=== PATIENT | female | born 1995 | race Two or more races ===

== ENCOUNTER 2023-06-18 18:41 | Inpatient (IN) ==
[2023-06-18] MEDS ORDERED: Lidocaine 1% VIAL 10 MG/ML 30 ML VIAL INJ PRN (20:22)
[2023-06-18] MEDS ORDERED: Promethazine INJ(RESTRICTED) 25 MG/ML 1 ml VIAL IV PRN (20:22)
[2023-06-18] MEDS ORDERED: Lactated Ringers 1000 ml BAG 1,000 ML IV ONE ×2 (20:22→21:35)
[2023-06-18] MEDS ORDERED: Penicillin G Potassium IV 5,000,000 UNITS in NS 0.9% 100 ml BAG 100 ML IVPB ONE (20:22)
[2023-06-18] MEDS ORDERED: Buffered Lidocaine 1% SYRIN 1 ml INTRADERM ONE (20:22)
[2023-06-18 20:55] LABS: Hematocrit 33.7 % (35-45); Hemoglobin 11.5 g/dL (11.5-14.3); Mean Corpuscular Hemoglobin 27.5 pg (27-33); Mean Corpuscular Hgb Conc 34.1 g/dL (31-36); Mean Corpuscular Volume 80.7 fL (80-97); Mean Platelet Volume 9.2 fL (7.5-11.2); Platelet Count 232 10^3/uL (150-450); Red Blood Count 4.17 10^6/uL (3.63-4.92); White Blood Count 6.5 10^3/uL (3.8-11.8)
[2023-06-18] MEDS ORDERED: Penicillin G Potassium IV 3,000,000 UNITS in NS 0.9% 100 ml BAG 100 ML IVPB SCH (21:00)
[2023-06-18] MEDS ORDERED: Lactated Ringers 1000 ml BAG 1,000 ML IV SCH ×2 (21:00→22:00)
[2023-06-18] MEDS ORDERED: OBEPIDURAL (200 ML) 200 ML EPIDURAL ONE (21:02)
[2023-06-18] MEDS ORDERED: Lidocaine 1.5% EPI 1:200,000 30 ML SDV ONE (21:02)
[2023-06-18 21:29] LABS: Urine Benzodiazepine Screen None Detected (None Detect); Urine Opiates Screen None Detected (None Detect)
[2023-06-18] MEDS ORDERED: Sodium Citrate/Citric Acid LIQ 15 ML UDC PO PRN (21:35)
[2023-06-18] MEDS ORDERED: Phenylephrine 40 mcg/mL 10mL (400mcg) SYRINGE IV PUSH PRN (21:35)
[2023-06-18 21:50] LABS: ABS Lymphocytes 1.8 10^3/uL (1.0-4.8); ABS Monocytes 0.5 10^3/uL (0.0-0.9); ABS Neutrophils 4.1 10^3/uL (1.5-7.6); Eosinophil % 0.6 %; Lymphocyte % 28.3 %; Nucleated Red Blood Cells % 0.1 %/100WBC (0.0-0.8)
[2023-06-18] MEDS: Phenylephrine 40 mcg/mL 10mL (400mcg) SYRINGE IV PUSH PRN ×3 (21:59→23:01)
[2023-06-18] MEDS ORDERED: OBEPIDURAL (200 ML) 200 ML EPIDURAL SCH (22:00)
[2023-06-18 22:54] LABS: Urine Appearance Clear; Urine Bilirubin Negative (Negative); Urine Blood Negative (Negative); Urine Color Straw; Urine Glucose Negative (Negative); Urine Ketones Negative (Negative); Urine Nitrite Negative (Negative); Urine Protein Negative (Negative); Urine Specific Gravity 1.006 (1.002-1.030); Urine Urobilinogen Negative (Negative)
[2023-06-19] MEDS: Penicillin G Potassium IV 3,000,000 UNITS in NS 0.9% 100 ml BAG 100 ML IVPB SCH ×3 (01:08→11:20)
[2023-06-19] MEDS ORDERED: Methylergonovine 0.2 mg AMPULE 1 ml AMP ONE (11:09)
[2023-06-19] MEDS ORDERED: Methylergonovine 0.2 mg AMPULE 1 ml AMP IM ONE (11:37)
[2023-06-19] MEDS ORDERED: RHO D Immune Globulin (HUMAN) 300 MCG = 1,500 I.U. INJ IM PRN (11:37)
[2023-06-19] MEDS ORDERED: Oxytocin in LR 20,000 MILLI.UNIT/1,000 ML BAG IV SCH (11:40)
[2023-06-19] MEDS ORDERED: Lactated Ringers 1000 ml BAG 1,000 ML IV SCH (12:00)
[2023-06-19] MEDS: Witch Hazel PAD JAR TOPICAL PRN (12:28)
[2023-06-19] MEDS: Dibucaine 1% OINT 28.35 GM TUBE PR PRN (12:28)
[2023-06-20 08:28] LABS: ABS Eosinophils 0.1 10^3/uL (0.0-0.5); ABS Lymphocytes 2.4 10^3/uL (1.0-4.8); ABS Monocytes 0.6 10^3/uL (0.0-0.9); ABS Neutrophils 4.8 10^3/uL (1.5-7.6); Eosinophil % 0.9 %; Hematocrit 29.3 % (35-45); Lymphocyte % 30.2 %; Mean Corpuscular Hemoglobin 27.7 pg (27-33); Mean Corpuscular Hgb Conc 34.2 g/dL (31-36); Mean Corpuscular Volume 80.8 fL (80-97); Mean Platelet Volume 9.2 fL (7.5-11.2); Platelet Count 191 10^3/uL (150-450); Red Blood Count 3.62 10^6/uL (3.63-4.92); Red Cell Distribution Width 23.3 % (12-17); White Blood Count 7.8 10^3/uL (3.8-11.8)
[2023-06-21 07:29] VITALS: BP 99/57
[2023-06-21] MEDS: Witch Hazel PAD JAR TOPICAL PRN (08:35)
[2023-06-21] MEDS: Dibucaine 1% OINT 28.35 GM TUBE PR PRN (08:35)
== END 2023-06-21 15:12 | disposition home or self-care (01) | DRG 560 ==
LOC: MCHOBOUT 18:41 → MCHOB 20:21
PROVIDERS: ADMIT Registered Nurse; ATTEND Midwife